=== PATIENT | male | born 1965 | race Caucasian/White ===

== ENCOUNTER 2020-01-01 04:11 | Inpatient (IN) | payer MEDICAID, OTHER ==
[~2020-01-01] VITALS: Ht 172.7 cm; Wt 66.7 kg
[2020-01-01 04:14] VITALS: BP 158/98
[2020-01-01] MEDS ORDERED: NACL 0.9% 1,000 ML IV ONE (04:15)
[2020-01-01] MEDS ORDERED: KETOROLAC 60 MG/2 ML VIAL IM ONE ×2 (04:24→04:25)
[2020-01-01] MEDS ORDERED: MORPHINE SULFATE 4 MG/ML SYR IVP ONE ×2 (04:25→05:40)
--- NOTE | 2020-01-01 04:30 | NUR ---
PT STATES HE DEVELOPED RUQ PAIN 2 DAYS AGO, HE ALSO HAS BEEN HAVING BLACK TARRY STOOLS, AND CLAIMS HE'S BEEN VOMITING AND THERE HAS BEEN BRIGHT RED BLOOD IN HIS VOMITUS. PT DENIES ANY PRIOR HX OF ANY GI BLEED. PT SCREAMING AND THRASHING IN BED IN PAIN. BED IN LOWEST POSITION AND SIDE RAIL UP X 1. ALLERGIES - PCN, TETANUS MED HX - SEIZURE D/O MEDS - KEPPRA
[2020-01-01] MEDS ORDERED: MORPHINE SULFATE 4 MG/ML SYR IM ONE (04:35)
--- NOTE | 2020-01-01 05:07 | NUR ---
LAB AT BEDSIDE. URINE COLLECTED FOR UA, SPECIMEN GIVEN TO LAB
[2020-01-01 05:25] LABS: BASOPHILS # (AUTO) 0.1 K/uL (0.00-0.22); BASOPHILS % (AUTO) 1.2 % (0.0-2.0); EOSINOPHILS # (AUTO) 0.2 K/uL (0-0.4); HEMATOCRIT 28.7 % (36-52); HEMOGLOBIN 9.5 g/dL (12.0-18.0); LYMPHOCYTES # (AUTO) 1.8 K/uL (2.0-11.5); LYMPHOCYTES % (AUTO) 19.7 % (20.5-51.1); MEAN CORPUSCULAR HEMOGLOBIN 30 pg (27-31); MEAN CORPUSCULAR HGB CONC 33 g/dL (33-37); MEAN CORPUSCULAR VOLUME 90.7 fL (80-94); MONOCYTES # (AUTO) 0.7 K/uL (0.8-1.0); MONOCYTES % (AUTO) 7.8 % (1.7-9.3); NEUTROPHILS # (AUTO) 6.5 K/uL (1.8-7.7); NEUTROPHILS % (AUTO) 69.3 % (42.2-75.2); PLATELET COUNT (AUTO) 419 K/uL (140-450); RED BLOOD CELL COUNT(AUTO) 3.16 MIL/uL (4.20-6.10); RED CELL DISTRIBUTION WIDTH 13.3 % (11.6-13.7); WHITE BLOOD COUNT (AUTO) 9.3 K/uL (4.8-10.8)
[2020-01-01 05:36] LABS: APPEARANCE,URINE CLEAR (CLEAR); BILIRUBIN,URINE NEGATIVE (NEGATIVE); BLOOD, URINE NEGATIVE (NEGATIVE); COLOR,URINE YELLOW (YELLOW); LEUKOCYTE ESTERASE ,URINE NEGATIVE (NEGATIVE); NITRITE, URINE NEGATIVE (NEGATIVE); UGLUCOSE NEGATIVE (NEGATIVE)
[2020-01-01 05:44] LABS: AMYLASE 96 U/L (25-115); ANION GAP 12.6 (8-16); ASPARTATE AMINOTRANSFERASE 20 U/L (15-37); CARBON DIOXIDE 30.4 mmol/L (21-32); CHLORIDE 101 mmol/L (98-107); GFR ARICAN-AMERICAN 100 mL/min (>90); GLUCOSE 102 mg/dL (74-106); LIPASE 201 U/L (73-393); SODIUM SERUM 140 mmol/L (136-145); TOTAL BILIRUBIN 0.1 mg/dL (0.0-1.0); UREA NITROGEN, BLOOD 17 mg/dL (7-18)
--- NOTE | 2020-01-01 05:47 | NUR ---
PT TAKEN TO CT SCAN VIA WHEELCHAIR
[2020-01-01 06:31] LABS: BARBITURATE, URINE NEGATIVE ng/ml (NEG <=200); BENZODIAZEPINE, URINE NEGATIVE ng/mL (NEG <=200); CANNABINOID, URINE POSITIVE ng/mL (NEG <=50); COCAINE, URINE NEGATIVE ng/mL (NEG <=300); OPIATE, URINE NEGATIVE ng/mL (NEG <=2000); PHENCYCLIDINE SCREEN,URINE NEGATIVE ng/mL (NEG <=25)
--- NOTE | 2020-01-01 06:34 | NUR ---
PT SLEEPING AT THIS TIME
--- NOTE | 2020-01-01 06:44 | NUR ---
PT TO BE ADMITTED TO FOR GALLSTONES, WAITING FOR BED ASSIGNMENT
[2020-01-01] MEDS ORDERED: ACETAMINOPHEN 325 MG TAB PO PRN (07:00)
[2020-01-01] MEDS ORDERED: DOCUSATE SODIUM 100 MG GELCAP PO PRN (07:00)
[2020-01-01] MEDS ORDERED: MORPHINE SULFATE 2 MG/ML SYR IVP PRN (07:00)
[2020-01-01] MEDS ORDERED: ONDANSETRON 4 MG/2 ML VIAL IM/IVP PRN (07:00)
--- NOTE | 2020-01-01 07:07 | NUR ---
ANGELESG COMPLETED AND SHOWN TO MD CASEY
[2020-01-01] MEDS ORDERED: ENALAPRILAT 2.5 MG/2 ML VIAL IVP ONE (07:10)
--- NOTE | 2020-01-01 07:16 | NUR ---
REPORT GIVEN TO ANGEL BACA
--- NOTE | 2020-01-01 07:17 | NUR ---
Received report from KEVEN Tate for continuation of care.
[2020-01-01] MEDS ORDERED: MORPHINE SULFATE 2 MG/ML SYR IVP ONE (07:20)
[2020-01-01 07:46] LABS: PROTHROMBIN TIME 9.6 secs (10.8-13.4)
[2020-01-01 07:53] LABS: CHOL/HDL RATIO 3.2 (1-4.5); MAGNESIUM 1.7 mg/dL (1.8-2.4); THYROID STIMULATING HORMONE 5.72 uIU/mL (0.34-3.74)
[2020-01-01 08:15] VITALS: BP 175/106
--- NOTE | 2020-01-01 08:15 | NUR ---
PT ARRIVED TO UNIT VIA WHEELCHAIR. RECEIVED REPORT FROM ER NURSE JYOTHI. PT IN BED, AOX4, ON ROOM AIR WITH IV SITE RIGHT IJ #20G. DISCUSSED PLAN OF CARE AND PT VERBALIZED UNDERSTANDING. PT C/O 05/27 PAIN. BP 175/106, HR 95, RR 20, SPO2 100%, TEMP 98.2F. PT STATED LAST SEIZURE WAS 5 DAYS AGO DUE TO N/V MEDICATION. WILL CONTINUE TO MONITOR.
--- NOTE | 2020-01-01 08:15 | NUR ---
Patient will be admitted to care of . Admited to [facility]. Will go to room 105A. Belongings list completed. Report to KEVEN Gamboa.
[2020-01-01] MEDS ORDERED: MORPHINE SULFATE 4 MG/ML SYR IVP PRN (08:25)
[2020-01-01] MEDS ORDERED: HYDROmorphone 1 MG/ML AMP IVP SCH (08:30)
--- NOTE | 2020-01-01 08:43 | NUR ---
SPOKE WITH DR. HAZEL REGARDING PT C/O PAIN 05/27. PT REQUESTING A HOT SHOWER. SHOWERS GRANTED AND PT DECIDED TO TAKE A HOT SHOWER AND DECLINED THE DILAUDID STATING "I DON'T WANT TO HAVE ALL THESE DRUGS IN ME, I JUST WANT TO TAKE A HOT SHOWER TO HELP WITH THE PAIN."
[2020-01-01] MEDS ORDERED: BISACODYL 10 MG SUPP RC SCH (09:00)
[2020-01-01] MEDS ORDERED: SODIUM PHOSPHATE 118 ML ENEM RC SCH (09:00)
[2020-01-01] MEDS ORDERED: MAGNESIUM OXIDE 400 MG TAB PO SCH (09:00)
[2020-01-01] MEDS: NACL 0.9% 1,000 ML IV SCH ×2 (09:07→23:37)
[2020-01-01] MEDS: levETIRAcetam 500 MG TAB PO SCH ×2 (09:08→22:20)
--- NOTE | 2020-01-01 09:09 | NUR ---
SCHEDULED MEDICATIONS GIVEN AND TOLERATED WELL. PT REFUSED SUPPOSITORY AND ENEMA STATING "I'LL BE USING THE BATHROOM IN A LITTLE WHILE." DILAUDID GIVEN FOR PAIN REQUESTED BY PATIENT. PT STATED "PAIN IS GETTING WORSE" PAIN LEVEL WAS 4/10 WHILE IN HOT SHOWER AND NOW PAIN LEVEL IS 6/10. PT TOLERATED WELL. NO S/S OF RESPIRATORY DISTRESS OR DISCOMFORT NOTED AT THIS TIME. WILL CONTINUE TO MONITOR.
--- NOTE | 2020-01-01 09:15 | NUR ---
MRSA NARES COLLECTED. PT TOLERATED WELL. NO S/S OF RESPIRATORY DISTRESS OR DISCOMFORT NOTED AT THIS TIME. WILL CONTINUE TO MONITOR.
--- NOTE | 2020-01-01 10:00 | NUR ---
PT REQUESTING HOT SHOWER AGAIN STATING PAIN WAS 10/10, MOANING. HOT SHOWER DECREASES HIS PAIN TO A TOLERABLE LEVEL.
--- NOTE | 2020-01-01 10:01 | NUR ---
PT IS AWARE OF HIDA SCAN FOR GALLBLADDER SCHEDULED FOR 1700/1800 TONIGHT AND TO BE NPO AFTER LUNCH. PT VERBALIZED UNDERSTANDING.
--- NOTE | 2020-01-01 10:43 | NUR ---
PT C/O NAUSEA ONCE OUT OF THE HOT SHOWER. EMESIS BAG GIVEN. ONCE IN PT ROOM PT VOMITED 1,000ML IN EMESIS BAG- CLEAR LIQUID. DR. HAZEL AND DR. ELLIOTT AWARE. PT REFUSED ZOFRAN STATING "I THINK THAT IS WHAT GOT ME SICK LAST TIME."
[2020-01-01] MEDS ORDERED: cloNIDine-TTS1 0.1 MG/24 HR 1 EA PATCH TD SCH (11:15)
[2020-01-01] MEDS: METOCLOPRAMIDE 10 MG/2 ML INJ VIAL IVP SCH ×2 (12:00→18:36)
[2020-01-01] MEDS ORDERED: METOCLOPRAMIDE 10 MG/2 ML INJ VIAL IVP SCH (12:00)
--- NOTE | 2020-01-01 12:00 | NUR ---
PT STATED HE WAS IN PAIN AGAIN AND WANTED ANOTHER HOT SHOWER. PT IN THE SHOWER ROOM, SITTING ON THE BENCH WITH WARM WATER RUNNING DOWN HIS BACK. PT TOLERATING WELL. NO S/S OF RESPIRATORY DISTRESS OR DISCOMFORT NOTED AT THIS TIME. WILL CONTINUE TO MONITOR.
[2020-01-01] MEDS: SENNA 8.6 MG TAB PO SCH ×2 (12:51→16:30)
[2020-01-01] MEDS: ONDANSETRON 4 MG/2 ML VIAL IVP SCH ×2 (12:51→17:00)
--- NOTE | 2020-01-01 12:51 | NUR ---
SCHEDULED MEDICATION SENOKOT GIVEN AND TOLERATED WELL. PT CONTINUES TO REFUSE REGLAN AND ZOFRAN. PT AWARE OF OB TEST. EDUCATED PT TO NOTIFY ME WHEN HE FEELS THE NEED TO HAVE A BM. BM HAT IN RESTROOM READY TO BE USED AND LABELED FOR PT. NO S/S OF RESPIRATORY DISTRESS OR DISCOMFORT NOTED AT THIS TIME. WILL CONTINUE TO MONITOR.
[2020-01-01] MEDS ORDERED: ONDANSETRON IV SCH (13:00)
[2020-01-01] MEDS ORDERED: ONDANSETRON 8 MG in NACL 0.9% 50 ML IV SCH (13:00)
[2020-01-01] MEDS ORDERED: NACL 0.9% IV SCH (13:00)
--- NOTE | 2020-01-01 13:42 | NUR ---
PT DESCRIBED THAT HIS PAIN IS MOSTLY ON THE RIGHT SIDE OF HIS BACK BY HIS LOWER RIBS TOWARDS THE MIDLINE. DR. HAZEL IS AWARE AND WILL EXAMINE PT ONCE HE FINISHES USING THE TOILET FOR URINATION. PT IS AWARE OF THE OB TEST. NO S/S OF RESPIRATORY DISTRESS OR DISCOMFORT NOTED AT THIS TIME. WILL CONTINUE TO MONITOR.
--- NOTE | 2020-01-01 13:49 | NUR ---
PATIENT HAS BEEN SCREENED AND CATEGORIZED MODERATE NUTRITION RISK. PATIENT WILL BE SEEN WITHIN 3-5 DAYS OF ADMISSION. 01/03/20 01/05/[address]
--- NOTE | 2020-01-01 14:09 | NUR ---
K PAD INITIATED FOR PT C/O BACK PAIN. PT EDUCATED ON HOW TO USE MACHINE. PT VERBALIZED UNDERSTANDING. NO S/S OF RESPIRATORY DISTRESS OR DISCOMFORT NOTED AT THIS TIME. WILL CONTINUE TO MONITOR.
--- NOTE | 2020-01-01 15:16 | NUR ---
PT SPOKE WITH DR. HAZEL AND HAS BEEN DENIED HOT SHOWERS DUE TO SEIZURE PRECAUTIONS. PT AGREED TO MORPHINE AND WAS GIVEN MEDICATION. PT TOLERATED WELL. PT CONTINUES TO MOAN, YELL AND MOVE ABOUT IN BED AND ROOM. WILL CONTINUE TO MONITOR. Addendum: 01/01/20 at 1727 by Bee Luong RN MORPHINE 3MG/0.75ML GIVEN AND 1MG/0.25ML WASTED AT NURSES STATION.
--- NOTE | 2020-01-01 15:17 | NUR ---
PT STATED THAT K PAD DOES NOT WORK FOR HIM AND TO "GET THAT THING OUT OF HERE!"
--- NOTE | 2020-01-01 16:30 | NUR ---
PT REFUSED SENAKOT STATING "I ALREADY TOOK THAT EARLIER." NO S/S OF RESPIRATORY DISTRESS OR DISCOMFORT NOTED AT THIS TIME. WILL CONTINUE TO MONITOR.
--- NOTE | 2020-01-01 18:20 | NUR ---
PT REQUESTING A HOT SHOWER. SPOKE WITH DR. NASH AND SHE ALLOWED PT TO TAKE A HOT SHOWER. PT STATED HE WILL TAKE HIS REGLAN AFTER HIS SHOWER.
--- NOTE | 2020-01-01 18:36 | NUR ---
SCHEDULED MEDICATION REGLAN GIVEN AND TOLERATED WELL. SPOKE WITH MIKE FROM NUCLEAR MED AND WILL BE PICKING UP PT TO HAVE HIDA SCAN. NO S/S OF RESPIRATORY DISTRESS OR DISCOMFORT NOTED AT THIS TIME. WILL CONTINUE TO MONITOR.
--- NOTE | 2020-01-01 19:20 | NUR ---
RECEIVED REPORT FROM AM SHIFT RN. PATIENT IS NOT IN HIS ROOM. HE IS CURRENTLY DOING HIDA SCAN PER ENDORSEMENT. PLAN OF CARE WAS DISCUSSED. WILL CONTINUE TO MONITOR.
--- NOTE | 2020-01-01 19:30 | NUR ---
PATIENT WAS BACK FROM HIDA SCAN PROCEDURE. THEY SAID THAT IT WASN'T DONE BECAUSE THE PATIENT KEEP ON MOVING AND DOESN'T STAY STILL, AND C/O PAIN. THE PATIENT IS IN THE SHOWER ROOM RIGHT NOW. I INFORMED RESIDENT DOCTOR. SAID WE'LL TRY AGAIN TOMORROW. ORDER NOTED.
[2020-01-01] MEDS: AMITRIPTYLINE 25 MG TAB PO SCH (21:26)
[2020-01-01] MEDS: HYDROcodone/APAP 5/325 MG 1 TAB TAB PO PRN (21:26)
--- NOTE | 2020-01-01 21:26 | NUR ---
DUE MED GIVEN TO PATIENT EXCEPT HANSA, TOLERATED WELL. MED EDUCATION PROVIDED. PATIENT STATES I WILL TAKE THAT IN A WHILE. C/O PAIN 5/10 AND WANTS NORCO. NORCO GIVEN ORDERED. NO SOB. WILL CONTINUE TO MONITOR.
--- NOTE | 2020-01-01 23:45 | NUR ---
PATIENT'S RIGHT INTRA JUGULAR IV SITE WAS NOTED DISLODGED. MINIMAL BLEEDING NOTED. PUT PRESSURE & DRESSED ASEPTICALLY. WILL RE-INSERT IV LINE.
[2020-01-02] VITALS: BP 145/103
--- NOTE | 2020-01-02 00:12 | NUR ---
PATIENT IS TAKING A SHOWER. WILL CONTINUE TO MONITOR.
--- NOTE | 2020-01-02 01:00 | NUR ---
TRIED TO RE-INSERT A NEW IV LINE, ATTEMPTED X1, UNSUCCESSFUL. CHARGE NURSE WILL TRY AGAIN BUT PATIENT REFUSED. MD AWARE AND SAID TO TRY AGAIN TO RE-INSERT IN THE MORNING. ORDER NOTED AND WILL TRY TO RE-INSERT AGAIN IN THE MORNING. THE REGLAN AT 12AM WASN'T GIVEN BECAUSE THERE IS NO IV SITE.
--- NOTE | 2020-01-02 05:30 | NUR ---
PATIENT IS ASLEEP. AROUSABLE TO VERBAL. NO PAIN NOTED. NO SOB. ASKED PATIENT IF OK WITH HIM TO RE-INSERT A NEW IV LINE, HE VERBALIZED "NOT RIGHT NOW, LATER." WILL CONTINUE TO MONITOR AND WILL TRY AGAIN LATER.
[2020-01-02] MEDS: HYDROcodone/APAP 5/325 MG 1 TAB TAB PO PRN ×5 (06:20→21:59)
--- NOTE | 2020-01-02 06:30 | NUR ---
RE-INSERTED A NEW IV LINE TO LEFT WRIST 24G. ATTEMPTED X1 WITH GOOD BLOOD RETURN. IV FLUID INFUSED. DUE MED GIVEN ORDERED. TOLERATED WELL. MED EDUCATION PROVIDED. CALL LIGHT WITHIN REACH. WILL CONTINUE TO MONITOR.
[2020-01-02] MEDS: METOCLOPRAMIDE 10 MG/2 ML INJ VIAL IVP SCH ×5 (06:49→21:00)
--- NOTE | 2020-01-02 07:10 | NUR ---
PATIENT IS SLEEPING. DENIES PAIN. NOT IN ANY ACUTE DISTRESS. RESPIRATION EVEN AND UNLABORED. NO SOB. ENDORSED TO AM SHIFT RN FOR CONTINUITY OF CARE. ALSO, GAVE THE MEDICINE SENOKOT TO KEVEN OLSON TO GIVE IT TO THE PATIENT LATER BECAUSE I TRIED TO GIVE IT AT 0645. PATIENT SAID "LATER." KEVEN OLSON SAID OK. Addendum: 01/02/20 at 0826 by Sylvester Rodríguez RN IN ADDITION, I MENTIONED TO KEVEN OLSON THAT PATIENT WENT MULTIPLE TIMES TO THE BATHROOM DURING MY WHOLE SHIFT AND TOOK HOT SHOWER TO RELIEVE HIS PAIN, AND IT HELPS PATIENT WELL, ASIDE FROM THE RELAXATION, POSITION CHANGES AND MEDICINE INTERVENTION.
--- NOTE | 2020-01-02 07:15 | NUR ---
RECEIVED REPORT FROM BRAINER NURSE BISHNU FOR CONTINUITY OF CARE. PATIENT IN STABLE CONDITION. RESPIRATIONS EVEN AND UNLABORED, ROOM AIR. IV INTACT AND PATENT. SAFETY MEASURES IN PLACE. BED IN LOW POSITION, BED LOCKED. CALL LIGHT AT BEDSIDE. WILL CONTINUE TO MONITOR.
--- NOTE | 2020-01-02 07:32 | NUR ---
PATIENT REFUSED AM BLOOD DRAW.
[2020-01-02 08:09] LABS: T4 (THYROXINE) 7.5 ug/dL (4.5-12.0)
[2020-01-02] MEDS ORDERED: ONDANSETRON 4 MG/2 ML VIAL IVP PRN (08:40)
[2020-01-02] MEDS: DEXT 5% / NACL 0.2% 1,000 ML IV SCH ×2 (08:45→23:03)
--- NOTE | 2020-01-02 09:04 | NUR ---
PATIENT REFUSED IV FLUID AND REQUESTED TUBING DISCONNECTED FROM IV SITE.
[2020-01-02] MEDS: amLODIPine 5 MG TAB PO SCH (09:51)
[2020-01-02] MEDS: levETIRAcetam 500 MG TAB PO SCH ×2 (09:51→21:58)
[2020-01-02] MEDS: SENNA 8.6 MG TAB PO SCH ×3 (09:51→17:12)
--- NOTE | 2020-01-02 09:52 | NUR ---
GAVE PRN NORCO MEDICATION AT THIS TIME. MAIA BERNSTEIN AWARE. DUE TO PATIENT PAIN.
--- NOTE | 2020-01-02 11:03 | NUR ---
PATIENT IN THE SHOWER AT THIS TIME. WILL CONTINUE TO MONITOR.
--- NOTE | 2020-01-02 13:41 | NUR ---
REMOVED PATIENT IV PER PATIENT REQUEST. NO INJURY TO SITE. LUMEN INTACT.
--- NOTE | 2020-01-02 13:52 | NUR ---
PATIENT IN SHOWER AT THIS TIME TO EASE PAIN. WILL CONTINUE TO MONITOR.
--- NOTE | 2020-01-02 15:12 | NUR ---
PATIENT SLEEP AT THIS TIME. RESPIRATIONS EVEN AND UNLABORED, ROOM AIR. BED IN LOW POSITION. CALL LIGHT AT BEDSIDE. WILL CONTINUE TO MONITOR.
--- NOTE | 2020-01-02 15:57 | NUR ---
DISCHARGE PLANNING: THIS IS A 54 Y/O HOMELESS MALE, WHO CAME IN DUE TO RUQ PAIN. PAST MEDICAL HISTORY INCLUDE EPILEPSY AND PTSD. INITIAL DIAGNOSIS OF BILIARY COLIC. CURRENT LABS WNL. UDS SHOWED POSITIVE FOR AMPHETAMINES AND CANNABINOIDS. ON ELAVIL. CT ABD/PELVIS SHOWED CHOLELITHIASIS. GALLBLADDER US SHOWED HEPATIC LOBE BILIARY STENT. RENAL US SHOWED NON OBSTRUCTIVE BILATERAL NEPHROLITHIASIS, POSSIBLE COMPLEX CYSTS OR PSEUDOMASS OF THE LEFT KIDNEY. GI CONSULT IN PLACE AND SEEN. DC PLAN PENDING ON PATIENT'S RESPONSE TO TREATMENT. Addendum: 01/03/20 at 1219 by Tracey Anderson CM DC PLANNING: SEEN BY DR DEGROOT ,RECOMMENDED NONSURGICAL , TREAT PATIENT WITH MUSCLE RELAXER, CONTINUE WITH IV ABX LEVAQUIN . CM TO FOLLOW.
--- NOTE | 2020-01-02 17:11 | NUR ---
GAVE PRN PAIN MEDICATION AT THIS TIME. PATIENT TOLERATED WELL. WILL CONTINUE TO MONITOR.
--- NOTE | 2020-01-02 19:15 | NUR ---
GAVE REPORT TO COOLER CONVEYOR LOADER NURSE MILTON FOR CONTINUITY OF CARE. PATIENT IN STABLE CONDITION.
--- NOTE | 2020-01-02 19:16 | NUR ---
RECEIVED REPORT FROM AM NURSE. PATIENT LYING DOWN IN BED SLEEPING, AROUSABLE BY VOICE. NO DISTRESS NOTED. DENIES ANY PAIN AT THIS TIME. RESPIRATIONS EVEN, UNLABORED, ON ROOM AIR. AAOX4, CALM, COOPERATIVE, SKIN COLOR APPROPRIATE TO ETHNICITY, WARM TO TOUCH. SKIN INTACT. NO IV SITE PATIENT PULLED OUT AND REFUSES ANOTHER IV STICK PER AM NURSE REPORT, MD ALREADY AWARE. SAFETY MEASURES IN PLACE, CALL LIGHT WITHIN REACH. WILL CONTINUE TO MONITOR.
[2020-01-02 20:00] VITALS: BP 122/79
[2020-01-02] MEDS: AMITRIPTYLINE 25 MG TAB PO SCH (21:58)
--- NOTE | 2020-01-02 22:15 | NUR ---
TALKED WITH PATIENT REGARDING POSSIBLE LAP REBECA BY DR. DEGROOT TOMORROW. PER PATIENT, HE WANTS TO TALK TO THE DR. DEGROOT FIRST BEFORE SIGNING ANY CONSENTS. WILL CONTINUE TO MONITOR.
[2020-01-03] VITALS: BP 115/75
--- NOTE | 2020-01-03 03:00 | NUR ---
PATIENT LYING DOWN IN BED SLEEPING, AROUSABLE BY VOICE. NO DISTRESS NOTED. CONDITION UNCHANGED. WILL CONTINUE TO MONITOR.
[2020-01-03] MEDS: METOCLOPRAMIDE 10 MG/2 ML INJ VIAL IVP SCH ×4 (05:00→21:00)
--- NOTE | 2020-01-03 05:31 | NUR ---
PATIENT LYING DOWN IN BED SLEEPING, AROUSABLE BY VOICE. CONDITION UNCHANGED. WILL CONTINUE TO MONITOR.
[2020-01-03] MEDS: HYDROcodone/APAP 5/325 MG 1 TAB TAB PO PRN ×2 (06:14→20:51)
[2020-01-03 06:43] LABS: BASOPHILS # (AUTO) 0.1 K/uL (0.00-0.22); BASOPHILS % (AUTO) 0.5 % (0.0-2.0); EOSINOPHILS # (AUTO) 0.2 K/uL (0-0.4); EOSINOPHILS % (AUTO) 1.5 % (0.0-4.0); HEMOGLOBIN 11.5 g/dL (12.0-18.0); LYMPHOCYTES # (AUTO) 1.8 K/uL (2.0-11.5); LYMPHOCYTES % (AUTO) 14.4 % (20.5-51.1); MEAN CORPUSCULAR HEMOGLOBIN 31 pg (27-31); MEAN CORPUSCULAR HGB CONC 34 g/dL (33-37); MEAN CORPUSCULAR VOLUME 89.9 fL (80-94); MONOCYTES # (AUTO) 1.2 K/uL (0.8-1.0); MONOCYTES % (AUTO) 9.6 % (1.7-9.3); NEUTROPHILS # (AUTO) 9.1 K/uL (1.8-7.7); PLATELET COUNT (AUTO) 522 K/uL (140-450); RED BLOOD CELL COUNT(AUTO) 3.79 MIL/uL (4.20-6.10); RED CELL DISTRIBUTION WIDTH 13.3 % (11.6-13.7); WHITE BLOOD COUNT (AUTO) 12.3 K/uL (4.8-10.8)
[2020-01-03 06:59] LABS: ANION GAP 13.8 (8-16); CARBON DIOXIDE 27.4 mmol/L (21-32); POTASSIUM 4.2 mmol/L (3.5-5.1)
[2020-01-03 07:01] LABS: MAGNESIUM 1.9 mg/dL (1.8-2.4); PHOSPHORUS 3.6 mg/dL (2.5-4.9)
--- NOTE | 2020-01-03 07:13 | NUR ---
GAVE REPORT TO AM SHIFT NURSE FOR CONTINUITY OF CARE. PATIENT IN STABLE CONDITION.
--- NOTE | 2020-01-03 07:14 | NUR ---
RECEIVED REPORT FROM MUTUEL CLERK NURSE, FOR CONTINUITY OF CARE. AA&OX4. MEDICAL DIRECTOR IS AT BEDSIDE. RESPIRATIONS EVEN AND UNLABORED, BREATHING TO RA. SKIN INTACT, SKIN COLOR APPROPRIATE FOR ETHNICITY. PT REFUSED IV INSERTION. NPO. REVIEWED PLAN OF CARE WITH PT. SAFETY MEASURES IN PLACE; CALL LIGHT WITHIN REACH, BED IN LOW POSITION. WILL CONTINUE TO MONITOR.
[2020-01-03 08:00] VITALS: BP 107/65
[2020-01-03] MEDS: SENNA 8.6 MG TAB PO SCH ×3 (08:03→18:56)
--- NOTE | 2020-01-03 08:16 | NUR ---
PT SHOWERED AND IS NOW BACK IN BED. RESIDENT IS AT BEDSIDE SPEAKING WITH PT. SAFETY MEASURES IN PLACE. WILL CONTINUE TO MONITOR.
[2020-01-03] MEDS: levETIRAcetam 500 MG TAB PO SCH ×2 (10:47→21:00)
[2020-01-03] MEDS: amLODIPine 5 MG TAB PO SCH (10:48)
[2020-01-03] MEDS ORDERED: LEVOFLOXACIN 750 MG/D5W PREMIX 150 ML IV SCH (11:00)
--- NOTE | 2020-01-03 11:05 | NUR ---
PT'S SCHEDULED MEDS ALSO GIVEN; MEDICATION EDUCATION PROVIDED. PT TOLERATED PO MEDS WELL. IV MEDICATION WAS NOT ADMINISTERED; PT REFUSED IV INSERTION. PT COMPLAINS OF PAIN; PER RESIDENT NO OPIATE MEDICATION SHOULD BE GIVEN, PENDING SURGERY LATER TODAY, WILL ORDER TORADOL. NO ACUTE DISTRESS NOTED. WILL CONTINUE TO MONITOR.
--- NOTE | 2020-01-03 11:42 | NUR ---
HEAD OF SALES PROMOTION NOTE: Basic Screen: Yes High Risk DC Screen [facility]: N/A Pre-Admission Living Arrangements: Other Prior ADL Independent Current Home Health Name/Tel: N/A Current DME/02 Name/Tel: WHEELCHAIR Current Hospice Name/Tel: N/A Current Dialysis Name/Tel: N/A Healthcare Decision Maker: Patient Advance Directive No Physician Orders for Life Sustaining Treatment Form No Patient/Family Have Educational Needs No Information Taught: Community Resources Person Taught: Patient Teaching Tools: Community Resources Factors Affecting Learning: None Evaluation: Verbalizes Understanding Discipline: Case Mgt/Social Svcs Tentative Discharge Plan/Destination: No Needs Identified Will require assistance post discharge: No Referred to Appian Developer: No Tentative Discharge Plan Summary: PATIENT IS A 54-YEAR-OLD MALE ADMITTED FOR BILIARY COLIC. PATIENT HAS PMHX OF EPILEPSY. PATIENT STATED THAT HE HAS BEEN COUCHING SURFING PRIOR TO HIS HOSPITALIZATION. SW MET WITH PATIENT AT BEDSIDE TO VERIFY DEMOGRAPHICS. PATIENT STATED THAT HE STAYS WITH DIFFERENT FRIENDS AT DIFFERENT TIMES. SW PROVIDED HOMELESS RESOURCES. PATIENT STATED THAT HE HAS A HISTORY OF BIPOLAR DISORDER. PATIENT REFUSED RESOURCES. PATIENT DENIED SUBSTANCE ABUSE HISTORY. TENTATIVE DISCHARGE PLAN IS FOR PATIENT TO RETURN TO FRIEND'S HOUSE. PATIENT WAS UNABLE TO PROVIDE FRIEND'S NAME. SW WILL REMAIN AVAILABLE IF FURTHER ISSUES ARISE. Signature: MONIQUE MAZARIEGOS Date: January 03, 2020 Time: 11:40
[2020-01-03] MEDS ORDERED: ONDANSETRON 4 MG/2 ML VIAL ONE (12:16)
[2020-01-03] MEDS ORDERED: fentaNYL 0.05 MG/ML VIAL ONE (12:16)
[2020-01-03] MEDS ORDERED: MIDAZOLAM 2 MG/2 ML VIAL ONE (12:16)
[2020-01-03] MEDS ORDERED: DEXAMETHASONE 4 MG/ML VIAL ONE (12:16)
[2020-01-03] MEDS ORDERED: DESFLURANE 240 ML BTL INH ONE (12:16)
[2020-01-03] MEDS ORDERED: CLINDAMYCIN 600 MG/4 ML VIAL ONE (12:21)
[2020-01-03] MEDS ORDERED: CLINDAMYCIN 900 MG/6 ML VIAL IV ONE (12:21)
[2020-01-03] MEDS ORDERED: LEVOFLOXACIN 500 MG/D5W PREMIX 100 ML IV ONE (12:33)
--- NOTE | 2020-01-03 12:35 | NUR ---
PT IS OFF UNIT FOR SURGERY.
[2020-01-03] MEDS ORDERED: BUPIVACAINE-MPF/EPI 0.25% 30 ML VIAL INJ ONE (12:45)
[2020-01-03] MEDS ORDERED: LACTATED RINGERS 1,000 ML IV SCH (13:08)
[2020-01-03] MEDS ORDERED: ONDANSETRON 4 MG/2 ML VIAL IVP PRN (13:10)
[2020-01-03] MEDS ORDERED: HYDROmorphone 1 MG/ML AMP IVP PRN (13:10)
[2020-01-03] MEDS ORDERED: MEPERIDINE 25 MG/ML SYR IVP PRN (13:10)
[2020-01-03] MEDS ORDERED: ALBUMIN HUMAN 5 % 250 ML IV ONE (13:56)
[2020-01-03] MEDS ORDERED: ePHEDrine 50 MG/ML VIAL ONE (13:57)
[2020-01-03] MEDS ORDERED: ePHEDrine 50 MG/ML VIAL IV PRN (14:00)
[2020-01-03] MEDS: ALBUMIN HUMAN 5 % 250 ML IV ONE ×2 (14:16→14:30)
--- NOTE | 2020-01-03 14:45 | NUR ---
PT IS BACK ON UNIT, S/P LAP CHOLECYSTECTOMY. RECEIVED REPORT FROM OR NURSE. PT HAS 4 ABDOMINAL INCISIONS, COVERED WITH DERMABOND. 5 MG EPHEDRINE GIVEN IN THE OR FOR LOW B/P. VITAL SIGNS ARE STABLE. BP: 107/65; PULSE:84. IV PLACED, LEFT HAND 20 GAUGE. NO ACUTE DISTRESS NOTED. WILL CONTINUE TO MONITOR.
--- NOTE | 2020-01-03 15:35 | NUR ---
CALL LIGHT PLACED NEXT TO PT ON BED, WITH PT INSTRUCTED TO PUSH THE BUTTON TO CALL FOR HELP IF NEEDED. PT TOLD IT TELECOM TECHNICIAN THAT HE NEEDED TO URINATE, AND A URINAL WAS PROVIDED TO PT BY IT TELECOM TECHNICIAN. PT FOUND ON THE FLOOR, WITH IV POLE NEXT TO HIM. PT STATED THAT HE DIDN'T FEEL COMFORTABLE USING THE URINAL IN BED, SO HE ATTEMPTED TO AMBULATE TO THE RESTROOM WITHOUT ASSISTANCE, AND FORGOT THAT HIS LEGS WERE STILL CONNECTED TO THE SEQUENTIAL COMPRESSION DEVICES, AND THEN LOWERED HIMSELF ONTO THE FLOOR. VITALS TAKEN, VITAL SIGNS STABLE. BP: 118/70, PULSE: 81. RESIDENT NOTIFIED; HEAD CT ORDERED TO R/O INJURY. PT REFUSES SUPPLEMENTAL O2. SPO2: 100% ON ROOM AIR. PT ALSO REFUSES TO CONTINUE TO WEAR THE SCDS. RADIOLOGY IS TO PERFORM HEAD CT. WILL CONTINUE TO MONITOR.
[2020-01-03 16:00] VITALS: BP 111/70
--- NOTE | 2020-01-03 16:32 | NUR ---
RADIOLOGY TECHNICIANS ON UNIT TO TAKE PT FOR CT SCAN. PT FOUND SLEEPING IN BED. WHEN PT WAS INFORMED THAT HE WOULD BE TAKEN FOR THE ORDERED CT SCAN, HE REFUSED; STATED: "I'M OKAY NOW", AND STATED THAT HE DID NOT NEED OR WANT THE CT. DR. HANKS INFORMED OF THE PT'S REFUSAL OF CT SCAN.
[2020-01-03] MEDS: KETOROLAC 15 MG/ML VIAL IVP PRN (18:52)
[2020-01-03] MEDS: CYCLOBENZAPRINE 10 MG TAB PO SCH ×2 (18:53→18:57)
--- NOTE | 2020-01-03 19:06 | NUR ---
PT COMPLAINS OF PAIN, TORADOL IVP ADMINISTERED. PO MEDICATIONS ALSO ADMINISTERED, MEDICATION EDUCATION PROVIDED. IV LEVAQUIN HUNG, AND RUNNING PER ORDERS. PREVIOUS DOSE OF LEVAQUIN WAS NOT ADMINISTERED, DUE TO PT REFUSING IV INSERTION. WARM BLANKET PROVIDED. PT IS IN STABLE CONDITION. SAFETY MEASURES IN PLACE.
--- NOTE | 2020-01-03 19:29 | NUR ---
GAVE BEDSIDE REPORT TO HYDROPULPER OPERATOR NURSE FOR CONTINUITY OF CARE. PT IS IN STABLE CONDITION.
--- NOTE | 2020-01-03 19:30 | NUR ---
RECEIVED REPORT FROM DAY SHIFT NURSE. PATIENT AWAKE, ALERT, ORIENTED X 4. PATIENT ON ROOM AIR. RESPIRATIONS EVEN AND UNLABORED. PATIENT WITH ABDOMINAL INCISIONS, DRESSING IN PLACE. WITH IV SITE PATENT AND INTACT WITH IVF. AMBULATES WITH ASSISTANCE. NO DISTRESS NOTED AT THIS TIME. SAFETY MEASURES IN PLACE. CALL LIGHT WITHIN REACH. REVIEWED PLAN OF CARE TO PATIENT. VERBALIZED UNDERSTANDING. WILL CONTINUE TO MONITOR PATIENT.
--- NOTE | 2020-01-03 20:51 | NUR ---
PATIENT COMPLAINED OF ABDOMINAL PAIN 6/10 PAINSCALE. MEDICATED PATIENT WITH NORCO PER ORDER. WILL REASSESS AND CONTINUE TO MONITOR PATIENT.
[2020-01-03] MEDS: AMITRIPTYLINE 25 MG TAB PO SCH (21:00)
--- NOTE | 2020-01-03 21:09 | NUR ---
WASTED REGLAN 5 MG MEDICATION. PATIENT IV SITE INFILTRATED. REMOVED. ASKED PATIENT TO INSERT NEW IV SITE BUT REFUSED. PATIENT REFUSED MED AT THIS TIME.
--- NOTE | 2020-01-03 23:10 | NUR ---
PATIENT SNEAKED TO THE BATHROOM TO SHOWER. PATIENT S/P LAP REBECA. ASSESSED INCISION INTACT, NO DRAINAGE NOTED. EDUCATED PATIENT TO NOT SHOWER WITHOUT DOCTOR'S ORDER. PATIENT UNDERSTANDS. WILL CONTINUE TO MONITOR.
[2020-01-04] VITALS: BP 125/71
--- NOTE | 2020-01-04 01:23 | NUR ---
CHECKED PATIENT. PATIENT IS SLEEPING COMFORTABLY. ON ROOM AIR. RESPIRATIONS EVEN AND UNLABORED. WILL CONTINUE TO MONITOR PATIENT.
[2020-01-04] MEDS: HYDROcodone/APAP 5/325 MG 1 TAB TAB PO PRN ×2 (02:43→09:54)
--- NOTE | 2020-01-04 02:43 | NUR ---
PATIENT COMPLAINED OF ABDOMINAL PAIN OF 6/10. MEDICATED PATIENT WITH NORCO PER ORDER. WILL REASSESS AND CONTINUE TO MONITOR PATIENT.
[2020-01-04] MEDS: KETOROLAC 15 MG/ML VIAL IVP PRN (04:44)
[2020-01-04] MEDS: METOCLOPRAMIDE 10 MG/2 ML INJ VIAL IVP SCH (04:44)
--- NOTE | 2020-01-04 04:44 | NUR ---
PATIENT COMPLAINED OF SEVERE PAIN ON HIS ABDOMINAL AREA /. INSERTED IV ON LEFT FOREARM GAUGE 22. MEDICATED PATIENT WITH TORADOL PER MD ORDER. OTHER IV SCHEDULED MEDICATION GIVEN. SAFETY MEASURES IN PLACE. WILL REASSESS AND CONTINUE TO MONITOR PATIENT.
[2020-01-04] MEDS: SENNA 8.6 MG TAB PO SCH (06:34)
--- NOTE | 2020-01-04 06:34 | NUR ---
SCHEDULED PO MEDICATION GIVEN. PATIENT TOLERATED WELL. WILL CONTINUE TO MONITOR PATIENT.
[2020-01-04 06:57] LABS: BASOPHILS % (AUTO) 0.3 % (0.0-2.0); EOSINOPHILS % (AUTO) 0.1 % (0.0-4.0); HEMATOCRIT 26.9 % (36-52); HEMOGLOBIN 9.4 g/dL (12.0-18.0); LYMPHOCYTES # (AUTO) 1.6 K/uL (2.0-11.5); MEAN CORPUSCULAR HEMOGLOBIN 31 pg (27-31); MEAN CORPUSCULAR HGB CONC 35 g/dL (33-37); MEAN CORPUSCULAR VOLUME 89.2 fL (80-94); MONOCYTES # (AUTO) 1.1 K/uL (0.8-1.0); MONOCYTES % (AUTO) 8.5 % (1.7-9.3); NEUTROPHILS # (AUTO) 10.5 K/uL (1.8-7.7); NEUTROPHILS % (AUTO) 79.1 % (42.2-75.2); PLATELET COUNT (AUTO) 518 K/uL (140-450); RED BLOOD CELL COUNT(AUTO) 3.01 MIL/uL (4.20-6.10); RED CELL DISTRIBUTION WIDTH 12.8 % (11.6-13.7); WHITE BLOOD COUNT (AUTO) 13.2 K/uL (4.8-10.8)
[2020-01-04 07:06] LABS: MAGNESIUM 1.8 mg/dL (1.8-2.4); PHOSPHORUS 3.4 mg/dL (2.5-4.9)
--- NOTE | 2020-01-04 07:18 | NUR ---
PATIENT IN STABLE CONDITION. ENDORSED PATIENT TO DAY SHIFT NURSE FOR CONTINUITY OF CARE.
--- NOTE | 2020-01-04 07:20 | NUR ---
RECEIVED REPORT FROM WINDOWS APPLICATION PACKAGER RNROSLYN. PATIENT AWAKE, ALERT, ORIENTED X 4. PATIENT ON ROOM AIR. RESPIRATIONS EVEN AND UNLABORED. PATIENT WITH ABDOMINAL INCISIONS, DRESSING IN PLACE. WITH IV SITE PATENT AND INTACT, LEFT FOREARM 22G SL. AMBULATES WITH ASSISTANCE. NO DISTRESS NOTED AT THIS TIME. SAFETY MEASURES IN PLACE. CALL LIGHT WITHIN REACH. REVIEWED PLAN OF CARE TO PATIENT. VERBALIZED UNDERSTANDING. WILL CONTINUE TO MONITOR PATIENT.
[2020-01-04 07:22] LABS: ANION GAP 10.3 (8-16); CARBON DIOXIDE 27.9 mmol/L (21-32); CREATININE 1.2 mg/dL (0.6-1.3); POTASSIUM 4.2 mmol/L (3.5-5.1)
--- NOTE | 2020-01-04 09:00 | NUR ---
ATTEMPTED TO GIVE MORNING MEDICATIONS, PT. IS ASLEEP AND REQUESTS TO TAKE THEM AFTER AN HOUR. WILL CONTINUE TO MONITOR.
[2020-01-04] MEDS: CYCLOBENZAPRINE 10 MG TAB PO SCH (09:49)
[2020-01-04] MEDS: amLODIPine 5 MG TAB PO SCH (09:50)
--- NOTE | 2020-01-04 09:50 | NUR ---
MORNING MEDICATIONS GIVEN. NO SIGNS OF DISTRESS NOTED. WILL CONTINUE TO MONITOR.
[2020-01-04] MEDS: levETIRAcetam 500 MG TAB PO SCH (09:51)
--- NOTE | 2020-01-04 10:30 | NUR ---
DR. COLLINS BY THE BEDSIDE PER REQUEST OF PT. PT. VERBALIZES WANTING TO LEAVE BY AMA. EXPLAINED RISK AND BENEFITS OF LEAVING AMA. PT. IS ASKED ON BASIS OF LEAVING, PT. REPLIES " I JUST WANT TO". WILL COMPLY. WILL CONTINUE TO MONITOR.
[2020-01-04] MEDS ORDERED: NACL 0.45% 1,000 ML IV SCH (10:55)
--- NOTE | 2020-01-04 11:15 | NUR ---
PT. HAS SIGNED AMA FORM, IV SITE REMOVED, ARMBANDS REMOVED. NO SIGNS OF DISTRESS NOTED. WILL CONTINUE TO MONITOR.
--- NOTE | 2020-01-04 11:30 | NUR ---
PT. IS OFF THE UNIT. NO SIGNS OF DISTRESS NOTED. SELF-AMBULATED WITHOUT ASSIST.
[2020-01-05] MEDS ORDERED: KEP500 PO (03:53)
== END 2020-01-04 11:30 | disposition left against medical advice (07) | DRG 263 ==
LOC: MED 04:11 → EDUNIT# 07:00 → MTU 07:00
PROVIDERS: ADMIT General Practice; ATTEND General Practice
PROC: 0FT44ZZ Resection of Gallbladder, Percutaneous Endoscopic Approach (ICD-10-PCS; principal; 2020-01-03 12:30)
DX: K80.70 Calculus of gallbladder and bile duct without cholecystitis without obstruction (principal); E44.0 Moderate protein-calorie malnutrition; E83.42 Hypomagnesemia; E87.1 Hypo-osmolality and hyponatremia; D63.8 Anemia in other chronic diseases classified elsewhere; Z68.22 Body mass index [BMI] 22.0-22.9, adult; Z88.0 Allergy status to penicillin; Z88.8 Allergy status to other drugs, medicaments and biological substances; Z88.7 Allergy status to serum and vaccine; D72.829 Elevated white blood cell count, unspecified; F12.90 Cannabis use, unspecified, uncomplicated; F43.10 Post-traumatic stress disorder, unspecified; G40.909 Epilepsy, unspecified, not intractable, without status epilepticus; E02 Subclinical iodine-deficiency hypothyroidism; N20.0 Calculus of kidney; F15.90 Other stimulant use, unspecified, uncomplicated; K44.9 Diaphragmatic hernia without obstruction or gangrene; K59.00 Constipation, unspecified; Z59.0 Homelessness; Z79.899 Other long term (current) drug therapy
CPT/HCPCS: 36415; 71045; 76700; 76770; 78445; 80048; 80053; 80305; 81003; 82150; 82374; 83036; 83690; 83735; 83880; 84100; 84436; 84443; 85025; 85610; 85730; 86886; 86900; 86901; 87081; 88304; 93005; 96361; 96372; 96374; 96376; 99285; A9510; G0482; J1100; J1170; J1885; J1956; J2250; J2270; J2405; J2765; J3010; J3490; J7030; P9041; Q0092

== ENCOUNTER 2020-01-05 00:50 | Inpatient (IN) | payer MEDICAID ==
[~2020-01-05] VITALS: Ht 175.3 cm; Wt 61.7 kg
[2020-01-05 00:54] VITALS: BP 155/83
[2020-01-05] MEDS ORDERED: NACL 0.9% 1,000 ML IV ONE (01:00)
[2020-01-05] MEDS ORDERED: HYDROmorphone PFS 2 MG/ML SYR IVP ONE (01:00)
--- NOTE | 2020-01-05 01:02 | NUR ---
54/M presents to ED, s/p cholecystectomy yesterday here in [facility], c/o vomiting x5 bright red blood, diffuse abd pain radiating to R mid back. Pt temp 102 on scene per EMS, but afebrile at this time. Pt reports constipation, LBM 6 days ago. Pt awake and alert, skin normal color warm and dry, rr even tachypnic but unlabored. Lung sounds clear BL. BS hypoactive x4, abd soft flat tender with guarding. 4 laparascopic incision sites covered in surgical glue, with mild surrounding redness. Hx seizure, cholecystectomy Rx amanda deshpande
[2020-01-05] MEDS ORDERED: PANTOPRAZOLE 40 MG INJ VIAL IVP ONE (01:05)
--- NOTE | 2020-01-05 01:10 | NUR ---
Transfer plan of care to [facility]
[2020-01-05 01:24] LABS: BASOPHILS # (AUTO) 0.1 K/uL (0.00-0.22); BASOPHILS % (AUTO) 0.7 % (0.0-2.0); EOSINOPHILS # (AUTO) 0.1 K/uL (0-0.4); EOSINOPHILS % (AUTO) 0.5 % (0.0-4.0); HEMATOCRIT 26.2 % (36-52); LYMPHOCYTES # (AUTO) 1.4 K/uL (2.0-11.5); LYMPHOCYTES % (AUTO) 13.4 % (20.5-51.1); MEAN CORPUSCULAR HEMOGLOBIN 30 pg (27-31); MEAN CORPUSCULAR HGB CONC 34 g/dL (33-37); MEAN CORPUSCULAR VOLUME 88.8 fL (80-94); MONOCYTES # (AUTO) 0.9 K/uL (0.8-1.0); MONOCYTES % (AUTO) 8.9 % (1.7-9.3); NEUTROPHILS # (AUTO) 8.1 K/uL (1.8-7.7); NEUTROPHILS % (AUTO) 76.5 % (42.2-75.2); PLATELET COUNT (AUTO) 552 K/uL (140-450); RED BLOOD CELL COUNT(AUTO) 2.95 MIL/uL (4.20-6.10); RED CELL DISTRIBUTION WIDTH 13.1 % (11.6-13.7); WHITE BLOOD COUNT (AUTO) 10.6 K/uL (4.8-10.8)
--- NOTE | 2020-01-05 01:26 | NUR ---
INFORMED PT THAT A URINE SAMPLE IS NEEDED AND PT STATES "I JUST WENT PEE A LITTLE WHILE AGO AND AM UNABLE TO PEE RIGHT NOW." INFORMED PT THAT I WILL CHECK ON HIM IN A FEW MINS AFTER THE BOLUS HAS BEEN RUNNING TO SEE IF PT IS ABLE TO THEN URINATE.
[2020-01-05 01:39] LABS: ANION GAP 7.6 (8-16); CARBON DIOXIDE 32.2 mmol/L (21-32); POTASSIUM 3.8 mmol/L (3.5-5.1); TOTAL BILIRUBIN 0.2 mg/dL (0.0-1.0)
--- NOTE | 2020-01-05 01:42 | NUR ---
KIM BLOOD CULTURES FROM LINE AND HANDED TO LAB AT BEDSIDE
--- NOTE | 2020-01-05 01:43 | NUR ---
PT STATING STILL FEELS NAUSEOUS AND INFORMED AND HE STATED AFTER PT RETURNS FROM CT THEN POSSIBLE NEW ORDER FOR ZOFRAN. INFORMED PT OF THIS.
[2020-01-05] MEDS ORDERED: ONDANSETRON 4 MG/2 ML VIAL IVP ONE (01:45)
--- NOTE | 2020-01-05 01:45 | NUR ---
PT CRYING OUT FOR NURSE TO RE ADJUST HEATING PACK AND ONCE THIS WAS DONE PT WAS SATISFIED.
--- NOTE | 2020-01-05 01:46 | NUR ---
PT C/O REALLY BAD BACK PAIN AND REQUESTING HEATING PAD, SO CALLED OUTPATIENT THERAPIST AND SHE BROUGHT ME HEATING PAD DEVICE, WHICH IS PROVIDING SOME PAIN RELIEF FOR PT.
--- NOTE | 2020-01-05 02:15 | NUR ---
PT SIGNED CT CONSENT FORM
--- NOTE | 2020-01-05 02:18 | NUR ---
PT TAKEN TO CT VIA PEDRO
--- NOTE | 2020-01-05 02:38 | NUR ---
PT RETURNED FROM CT VIA GURNEY AND CONECTED TO BEDSIDE MONITOR AND HEATING PAD REPLACED UNDER PT'S BACK
--- NOTE | 2020-01-05 02:44 | NUR ---
PT IS TRYING TO PROVIDE URINE SAMPLE BUT NO SUCCESS YET
--- NOTE | 2020-01-05 03:09 | NUR ---
WALKED URINE SAMPLE TO LAB
[2020-01-05 03:13] LABS: APPEARANCE,URINE CLEAR (CLEAR); BILIRUBIN,URINE NEGATIVE (NEGATIVE); BLOOD, URINE NEGATIVE (NEGATIVE); COLOR,URINE YELLOW (YELLOW); LEUKOCYTE ESTERASE ,URINE NEGATIVE (NEGATIVE); NITRITE, URINE NEGATIVE (NEGATIVE); UGLUCOSE NEGATIVE (NEGATIVE)
[2020-01-05] MEDS ORDERED: MORPHINE SULFATE 2 MG/ML SYR IVP PRN (03:20)
[2020-01-05] MEDS ORDERED: ONDANSETRON 4 MG/2 ML VIAL IVP PRN (03:20)
[2020-01-05] MEDS ORDERED: ACETAMINOPHEN 325 MG TAB PO PRN (03:20)
--- NOTE | 2020-01-05 03:30 | NUR ---
PT RESTING IN POSITION OF COMFORT WITH HEATING PAD PLACED BEHIND BACK. BED LOW AND LOCKED WITH 2 SIDERAILS UP, VSS, WILL CONTINUE TO MONITOR
--- NOTE | 2020-01-05 03:35 | NUR ---
AT BEDSIDE TALKING WITH PT
[2020-01-05] MEDS ORDERED: KEP500 PO (03:53)
[2020-01-05 03:54] LABS: PROTHROMBIN TIME 10.2 secs (10.8-13.4)
[2020-01-05 04:00] LABS: BARBITURATE, URINE NEGATIVE ng/ml (NEG <=200); BENZODIAZEPINE, URINE NEGATIVE ng/mL (NEG <=200); CANNABINOID, URINE POSITIVE ng/mL (NEG <=50); COCAINE, URINE NEGATIVE ng/mL (NEG <=300); PHENCYCLIDINE SCREEN,URINE NEGATIVE ng/mL (NEG <=25)
[2020-01-05 04:00] LABS: MAGNESIUM 1.7 mg/dL (1.8-2.4); PHOSPHORUS 3.9 mg/dL (2.5-4.9); THYROID STIMULATING HORMONE 4.42 uIU/mL (0.34-3.74)
[2020-01-05 04:01] LABS: OPIATE, URINE POSITIVE ng/mL (NEG <=2000)
--- NOTE | 2020-01-05 04:15 | NUR ---
ADMITTED 54 Y/O MALE VIA GURNEY FROM E.. PATIENT IS LYING IN BED. AOX4. RESPIRATION EVEN AND UNLABORED. NO SOB. IV SITE AT LFA 20 G. INTACT. INITIAL ASSESSMENT DONE. V/S 98.6, 18, 95, 118/70, 97% RA. WITH HEATING PAD ON THE BED. PLAN OF CARE WAS DISCUSSED. CALL LIGHT WITHIN REACH. WILL CONTINUE TO MONITOR.
--- NOTE | 2020-01-05 04:15 | NUR ---
Patient will be admitted to care of . Admited to [facility]. Will go to room 105B. Belongings list completed. Report GIVEN TO KEVEN GOETZ. ENDORSED THE RETURN OF THE HEATING PAD MACHINE TO [facility] TO PUT AWAY TO BRODY MCCARTY RN AND BISHNU, PRIMARY RN, UPON PT DISCHARGE.
[2020-01-05] MEDS ORDERED: MAGNESIUM OXIDE 400 MG TAB PO SCH (04:40)
[2020-01-05] MEDS: DEXT 5% /NACL 0.9% 1,000 ML IV SCH ×2 (05:14→15:45)
[2020-01-05] MEDS: HYDROcodone/APAP 7.5/325 MG 1 TAB PO PRN ×2 (05:14→10:07)
--- NOTE | 2020-01-05 05:14 | NUR ---
PATIENT C/O ABDOMINAL PAIN 01/25. REPOSITIONED. PAIN MED GIVEN ORDERED. MED ED PROVIDED. KEPT COMFORTABLE.
--- NOTE | 2020-01-05 06:14 | NUR ---
DENIES PAIN. CALL LIGHT WITHIN REACH. WILL CONTINUE TO MONITOR.
--- NOTE | 2020-01-05 07:25 | NUR ---
PATIENT IS STABLE. NO N/V. ENDORSED TO AM SHIFT RN FOR CONTINUITY OF CARE.
--- NOTE | 2020-01-05 07:30 | NUR ---
RECEIVED REPORT FROM ANESTHESIA ASSOCIATE RN, BARBARA, FOR CONTINUITY OF CARE. PATIENT ASLEEP AND IN BED. AAOX 4. ON ROOM AIR. RESPIRATIONS EVEN AND UNLABORED. SKIN NON-INTACT WITH 5 SURGICAL INCISION IN THE ABDOMEN. IV SITE PATENT AND INTACT ON L FOREARM 20G D5NS 75ML/HR WITH IVF. NO PAIN/DISTRESS NOTED. REVIEWED PLAN OF CARE TO PATIENT. VERBALIZED UNDERSTANDING. SAFETY MEASURES IN PLACE. CALL LIGHT WITHIN REACH. WILL CONTINUE TO MONITOR PATIENT.
[2020-01-05 08:00] VITALS: BP 108/64
--- NOTE | 2020-01-05 08:49 | NUR ---
PATIENT HAS BEEN SCREENED AND CATEGORIZED MODERATE NUTRITION RISK. PATIENT WILL BE SEEN WITHIN 3-5 DAYS OF ADMISSION. 01/07/20 01/09/[address]
[2020-01-05] MEDS ORDERED: FAMOTIDINE 20 MG TAB PO SCH (09:00)
[2020-01-05] MEDS: levETIRAcetam 500 MG TAB PO SCH ×2 (10:09→20:13)
[2020-01-05] MEDS: DOCUSATE SODIUM 100 MG GELCAP PO SCH ×2 (10:10→20:13)
--- NOTE | 2020-01-05 11:20 | NUR ---
DR. MOELLER BY THE BEDSIDE. EGD PROCEDURE TO BE DONE TODAY FOR HEMATEMESIS. PT. HAS SIGNED CONSENT. RISK AND BENEFITS EXPLAINED TO PT. PT. VERBALIZES UNDERSTANDING. WILL CONTINUE TO MONITOR.
[2020-01-05] MEDS ORDERED: diphenhydrAMINE 50 MG/ML VIAL ONE (11:24)
[2020-01-05] MEDS ORDERED: fentaNYL 0.05 MG/ML VIAL ONE (11:25)
[2020-01-05] MEDS ORDERED: MIDAZOLAM 2 MG/2 ML VIAL ONE (11:25)
--- NOTE | 2020-01-05 11:40 | NUR ---
PT. IS OFF THE UNIT FOR EGD DUE TO HEMATEMESIS. PT. IS AWARE OF PROCEDURE. PRE-OPERATION CHECKLIST DONE. NO SIGNS OF DISTRESS NOTED FROM PT. WILL CONTINUE TO MONITOR.
[2020-01-05] MEDS: MIDAZOLAM 2 MG/2 ML VIAL IVP ONE ×2 (11:46→12:50)
[2020-01-05] MEDS: fentaNYL 0.05 MG/ML VIAL IVP ONE ×2 (11:47→12:49)
[2020-01-05] MEDS: diphenhydrAMINE 50 MG/ML VIAL IVP ONE ×2 (11:49→12:49)
--- NOTE | 2020-01-05 12:25 | NUR ---
PT. IS BACK FROM EGD PROCEDURE. V/S 98/48, HR 59, TEMP 97.8, RR 16, O2 STAT 94%. PT. IS ASLEEP AND IN BED. NO SIGNS OF DISTRESS NOTED. WILL CONTINUE TO MONITOR.
[2020-01-05] MEDS ORDERED: cloNIDine 0.1 MG TAB PO SCH (13:00)
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
[2020-01-05] MEDS: METOCLOPRAMIDE 10 MG/2 ML INJ VIAL IVP PRN ×2 (15:37→15:38)
--- NOTE | 2020-01-05 15:40 | NUR ---
SPOKE TO DR. COLLINS ABOUT PT'S PAIN AND CONTACT FOR NEXT OF KIN. DR. COLLINS IS AWARE AND PLACED NEW ORDERS FOR PAIN MEDICATION. DR. COLLINS WILL SEE PT. ABOUT CONDITION. WILL CONTINUE TO MONITOR
--- NOTE | 2020-01-05 15:45 | NUR ---
PT. IS IN EXTREME PAIN. DR. COLLINS IS AWARE AND IS BY THE BEDSIDE. PT. INSISTS ON SHOWERING. SECURITY IS BY THE BEDSIDE AND PT. IS BECOMING AGGRESSIVE. ESCORTED PT. TO SHOWER.
[2020-01-05] MEDS ORDERED: KETOROLAC 30 MG/ML VIAL ONE (15:54)
[2020-01-05 16:00] VITALS: BP 91/43
--- NOTE | 2020-01-05 18:00 | NUR ---
PT. EXPRESSES ANXIETY D/T PREVIOUS SITUATION. SPOKE TO DR. COLLINS, NEW ORDERS FOR ATIVAN 1MG PRN TO BE GIVEN. WILL FOLLOW THROUGH.
--- NOTE | 2020-01-05 18:05 | NUR ---
INFORMED DR. COLLINS ABOUT PT'S ALLERGY TO LORAZEPAM. DR. COLLINS ACKNOWLEDGES AND REQUESTS TO MONITOR FOR ALLERGIC REACTION. WILL FOLLOW THROUGH.
--- NOTE | 2020-01-05 18:15 | NUR ---
ATIVAN PRN GIVEN FOR ANXIETY. NO SIGNS OF DISTRESS NOTED. PT. IS IN BED AND EATING. WILL CONTINUE TO MONITOR.
[2020-01-05] MEDS ORDERED: LORazepam 1 MG TAB PO PRN (18:25)
[2020-01-05] MEDS: KETOROLAC 30 MG/ML VIAL IVP PRN (18:39)
--- NOTE | 2020-01-05 18:45 | NUR ---
RE-EVALUATED PT. PT. STATES NO DISCOMFORT OR PAIN, NO ALLERGIES NOTED. WILL CONTINUE TO MONITOR.
--- NOTE | 2020-01-05 19:23 | NUR ---
ENDORSED TO SUPERVISOR TYPE BAR AND SEGMENT NURSERONY, FOR CONTINUITY OF CARE.
--- NOTE | 2020-01-05 19:24 | NUR ---
RECEIVED REPORT FROM AM SHIFT KEVEN PADILLA FOR CONTINUITY OF CARE. PATIENT ASLEEP AND IN BED. PREVIOUS SHIFT SAID PT AAOX 4, AMBULATORY, ON ROOM AIR. RESPIRATIONS EVEN AND UNLABORED. SKIN NON-INTACT WITH 5 SURGICAL INCISION IN THE ABDOMEN. IV SITE PATENT AND INTACT ON L FOREARM 20G D5NS 75ML/HR WITH IVF. NO COMPLAINTS OF PAIN AT THIS TIME. NOT IN RESPIRATORY DISTRESS. REVIEWED PLAN OF CARE TO PATIENT. VERBALIZED UNDERSTANDING. SAFETY MEASURES IN PLACE. CALL LIGHT WITHIN REACH. WILL CONTINUE TO MONITOR PATIENT.
[2020-01-05] MEDS ORDERED: AMITRIPTYLINE 25 MG TAB PO SCH (21:00)
[2020-01-05] MEDS ORDERED: LACTULOSE 20 GM/30 ML UDC PO SCH (21:00)
--- NOTE | 2020-01-05 21:00 | NUR ---
CLONIDINE 0.1 MG HOLD FOR NOW PT'S BP IS 100/50 MMGH; HR 71; O2 SAT 98%; RR-18; PT SLEEPING AT THIS TIME Addendum: 01/05/20 at 2305 by Diane Rosales RN INFORMED DR. GAMA
--- NOTE | 2020-01-05 22:30 | NUR ---
PT WENT TO THE SHOWER HE SAID THAT HE IS A LOT OF PAIN ABDOMEN, AND HE SAID HE GOES TO THE SHOWER TO EASE HIS PAIN. CHECKED ON PATIENT MYSELF BUT THE ONLY THING I CAN SEE WAS THE HOT SHOWER ABOVE. CANNOT SEE BECAUSE OF THE SMOKEY GLASS INSIDE.BUT PT SEEMED TO BE BUSY. AFTER 20 MINS INSIDE THE SHOWER PT WENT BACK TO HIS ROOM.
--- NOTE | 2020-01-05 23:09 | NUR ---
PT SLEEPING, NO COMPLAINTS OF PAIN, IVF STILL RUNNING ON THE LEFT FA G 20, PATENT WILL CONTINUE TO MONITOR
--- NOTE | 2020-01-06 00:38 | NUR ---
C/O OF PAIN IN ABDOMEN WILL GIVE KETOROLAC, WILL ASSESS PAIN
[2020-01-06] MEDS: KETOROLAC 30 MG/ML VIAL IVP PRN (00:40)
--- NOTE | 2020-01-06 03:10 | NUR ---
PT WENT TO THE SHOWER HE SAID THAT HE IS A LOT OF PAIN ABDOMEN, AND HE SAID HE GOES TO THE SHOWER TO EASE HIS PAIN. CALLED SECURITY TO CHECK ON PT
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
--- NOTE | 2020-01-06 03:30 | NUR ---
SECURITY CAME IN AND CHECKED ON PATIENT INSIDE THE BATHROOM, PT REFUSED TO COOPERATE. MARISA THE REASON WHY SECUTITY WAS CALLED WAS BECAUSE THE PT KEEPS ON GOING BE THE BATHROOM AND STAYING FOR AT LEAST 20 MINS THERE. THE 1ST TIME HE WENT TO THE BATHRROM, CHECKED ON PT AND SAW THAT PT WAS TAKING A HOT SHOWER BUT THE SMOKEY GLASS COVERED MY VISION, SO THE 2ND TIME AROUND GOT THE SECURITY TO ASK HIM TO GO OUT BECAUSE IN HIS 2ND TIME AT THE SHOWER STAYED AGAIN THERE FOR 20 MINS. BUT PT REFUSED TO GO OUT, SO SECURITY HAD TO GO AND GET HIM OUT. PT AGGRESSIVE AND FIGHTING BACK ON SECURITY. PT WAS FORCED TO BE BROUGHT TO HIS ROOM BY 4 MEN,1 POLISHING WHEEL SETTER
[2020-01-06] MEDS ORDERED: LORazepam 2 MG/ML VIAL IM/IVP PRN (03:35)
--- NOTE | 2020-01-06 03:35 | NUR ---
PT WAS AGGRESSIVE, PT WAS CUSSING, HITTING STAFF, AND PT KICKING STAFF, PT NOT COOPERATING. IN THE ROOM HE WAS, FLIPPING THE CUSHION AND DISPLACING THE BED
[2020-01-06] MEDS ORDERED: LORazepam 2 MG/ML VIAL ONE (03:37)
--- NOTE | 2020-01-06 03:51 | NUR ---
PT HAVING SEIZURES; PT LOST CONSCIOUSNESS DR. CARVALHO ORDERED TO GIVE THE ATIVAN FOR SEIZURES Q 10 MINS PRN. ONLY GAVE ONE DOSE AT THIS TIME VIA IM, PT PULLED HIS IV EARLIER Addendum: 01/06/20 at 0420 by Diane Rosales RN DR. WOODSON
--- NOTE | 2020-01-06 03:53 | NUR ---
PT AWAKE NOW, AND 2 POLICE OFFICERS WERE HERE, WITH FINAL BLOCK PRESS OPERATOR, TIMOTHY, 1 RT, AND 2 ER STAFF. PT PLACED ON SOFT RESTRAINT.
--- NOTE | 2020-01-06 04:01 | NUR ---
TALKED TO PHARMACIST REGARDING LORAZEPAM, AND PRIOR TO GIVING LORAZEPAM IV I ASKED THE PT IF HE HAS ANY ALLERGIES OR REACTION TO LORAZEPAM IV, AND THE PT SAID NO. I AM MONITORING PT RIGHT NOW FOR ANY REACTIONS, BUT UNTIL NOW DON'T SEE ANY REACTION
--- NOTE | 2020-01-06 04:04 | NUR ---
TRIED TO HAVE PATIENT SAIGNED ZAIN BUT PT WAS AGGRESSIVE, 4 MEN STILL WITH PATIENT AND HE WAS WALKING IN THE HALLWAY, AND TO THE NURSES STATION TO GET HIS PHONE. Addendum: 01/06/20 at 0430 by Diane Rosales RN SIGNED
--- NOTE | 2020-01-06 04:05 | NUR ---
PT TRACY PITTMAN BROUGHT HIS THINGS AND GOT HIS CELLPHONE. Addendum: 01/06/20 at 0429 by Diane Rosales RN PLS DELETE THIS NOTE
--- NOTE | 2020-01-06 04:05 | NUR ---
PT WENT ELOPEMENT AND BROUGHT ALL HIS THINGS AND GOT HIS CELLPHONE
[2020-01-06] MEDS ORDERED: METR250T2 PO (11:02)
[2020-01-06] MEDS ORDERED: [UNRECOGNIZED DRUG - CODE] PO (11:02)
[2020-01-06] MEDS ORDERED: PANT40EC PO (11:02)
== END 2020-01-06 04:04 | disposition left against medical advice (07) | DRG 243 ==
LOC: MED 00:50 → MTU 03:27
PROVIDERS: ADMIT General Practice; ATTEND General Practice
PROC: 0DB68ZX Excision of Stomach, Via Natural or Artificial Opening Endoscopic, Diagnostic (ICD-10-PCS; 2020-01-05)
PROC: 0DB18ZX Excision of Upper Esophagus, Via Natural or Artificial Opening Endoscopic, Diagnostic (ICD-10-PCS; principal; 2020-01-05 11:30)
DX: K22.70 Barrett's esophagus without dysplasia (principal); E44.0 Moderate protein-calorie malnutrition; E83.42 Hypomagnesemia; K92.0 Hematemesis; E87.1 Hypo-osmolality and hyponatremia; N28.1 Cyst of kidney, acquired; D64.9 Anemia, unspecified; K80.50 Calculus of bile duct without cholangitis or cholecystitis without obstruction; I10 Essential (primary) hypertension; G40.909 Epilepsy, unspecified, not intractable, without status epilepticus; N20.0 Calculus of kidney; F12.99 Cannabis use, unspecified with unspecified cannabis-induced disorder; F15.99 Other stimulant use, unspecified with unspecified stimulant-induced disorder; B96.81 Helicobacter pylori [H. pylori] as the cause of diseases classified elsewhere; K44.9 Diaphragmatic hernia without obstruction or gangrene; Z68.20 Body mass index [BMI] 20.0-20.9, adult; Z90.49 Acquired absence of other specified parts of digestive tract; Z88.8 Allergy status to other drugs, medicaments and biological substances; Z59.0 Homelessness
CPT/HCPCS: 36415; 71045; 74160; 80053; 80305; 81003; 82150; 83036; 83605; 83690; 83735; 83880; 84100; 84443; 84484; 85025; 85610; 85730; 86677; 86886; 86900; 86901; 87040; 87081; 88305; 88313; 88342; 96361; 96374; 96375; 99285; C9113; J1170; J1200; J1885; J2060; J2250; J2405; J2765; J3010; J7030; J7042; Q0092; Q9967

== ENCOUNTER 2020-01-06 04:55 | Emergency (ER) | payer MEDICAID ==
[~2020-01-06] VITALS: Ht 170.2 cm; Wt 61.2 kg
[~2020-01-06 04:55] MED LIST: KEP500 PO
[2020-01-06 05:00] VITALS: BP 129/94
--- NOTE | 2020-01-06 05:01 | NUR ---
PT TAKEN TO TRIAGE ROOM
--- NOTE | 2020-01-06 05:02 | NUR ---
Dr. Tabares examining patient.
--- NOTE | 2020-01-06 05:14 | NUR ---
PT MOVED TO ER BED 11
[2020-01-06] MEDS ORDERED: LIDOCAINE VISCOUS 2% 20 ML UDC PO ONE (05:15)
[2020-01-06] MEDS ORDERED: ALUMINUM HYD/MAG/SIMETHICONE 30 ML UDC PO ONE (05:15)
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
[2020-01-06] MEDS ORDERED: FAMOTIDINE 20 MG TAB PO ONE (05:50)
[2020-01-06 06:00] LABS: BASOPHILS # (AUTO) 0.1 K/uL (0.00-0.22); EOSINOPHILS # (AUTO) 0.2 K/uL (0-0.4); EOSINOPHILS % (AUTO) 2.1 % (0.0-4.0); HEMATOCRIT 24.3 % (36-52); HEMOGLOBIN 8.2 g/dL (12.0-18.0); LYMPHOCYTES # (AUTO) 1.1 K/uL (2.0-11.5); MEAN CORPUSCULAR HEMOGLOBIN 30 pg (27-31); MEAN CORPUSCULAR HGB CONC 34 g/dL (33-37); MEAN CORPUSCULAR VOLUME 89.9 fL (80-94); MONOCYTES # (AUTO) 0.7 K/uL (0.8-1.0); MONOCYTES % (AUTO) 8.4 % (1.7-9.3); NEUTROPHILS # (AUTO) 6.6 K/uL (1.8-7.7); NEUTROPHILS % (AUTO) 75.5 % (42.2-75.2); PLATELET COUNT (AUTO) 521 K/uL (140-450); RED CELL DISTRIBUTION WIDTH 13.3 % (11.6-13.7); WHITE BLOOD COUNT (AUTO) 8.8 K/uL (4.8-10.8)
[2020-01-06 06:14] LABS: ALBUMIN 2.6 g/dL (3.4-5.0); ANION GAP 8.7 (8-16); CARBON DIOXIDE 29.5 mmol/L (21-32); POTASSIUM 4.2 mmol/L (3.5-5.1); TOTAL BILIRUBIN 0.2 mg/dL (0.0-1.0)
--- NOTE | 2020-01-06 06:30 | NUR ---
PT SIGNED CONSENT FOR CT SCAN W/CONTRAST.
--- NOTE | 2020-01-06 07:06 | NUR ---
Pt report given to KEVEN FLORIAN. Transfer of care at this time.
--- NOTE | 2020-01-06 07:12 | NUR ---
REPORT RECEIVED FROM KEVEN GUAMAN AND ASSUMED CARE.
--- NOTE | 2020-01-06 07:51 | NUR ---
pt sleeping in bed. arouseable to voice. awaiting residents for discharge.
[2020-01-06 10:20] VITALS: BP 127/87
--- NOTE | 2020-01-06 10:21 | NUR ---
Patient discharged with v/s stable. Written and verbal after care instructions given and explained. Patient verbalized understanding. Ambulatory with steady gait. All questions addressed prior to discharge. Advised to follow up with PMD. PT REFUSED TO SIGN DC PAPERS
[2020-01-06] MEDS ORDERED: [UNRECOGNIZED DRUG - CODE] PO (11:02)
[2020-01-06] MEDS ORDERED: PANT40EC PO (11:02)
[2020-01-06] MEDS ORDERED: METR250T2 PO (11:02)
== END 2020-01-06 10:21 | disposition home or self-care (01) ==
LOC: MED 04:55
DX: R10.9 Unspecified abdominal pain (principal); I10 Essential (primary) hypertension; R56.9 Unspecified convulsions; Z88.8 Allergy status to other drugs, medicaments and biological substances; Z88.0 Allergy status to penicillin; Z79.899 Other long term (current) drug therapy
CPT/HCPCS: 36415; 80053; 83690; 85025; 99283; 99284

== ENCOUNTER 2020-01-06 12:17 | Emergency (ER) | payer MEDICAID ==
[~2020-01-06] VITALS: Ht 172.7 cm; Wt 68.0 kg
[~2020-01-06 12:17] MED LIST changes: +METR250T2 PO; +PANT40EC PO; +[UNRECOGNIZED DRUG - CODE] PO
--- NOTE | 2020-01-06 12:17 | NUR ---
PT CAME IN THROUGH ED DOORS SCREAMING ABOUT 105-B AND LOOKING FOR HIS BLACK PANTS. SECURITY SATISH WAS FOLLOWING INSTRUCTING PATIENT HE HAD TO LEAVE. PT AGGRESSIVE TOWARDS STAFF AND SWINGING HIS ARMS. WE CALLED A CODE RUST, PT WAS THEN STOPPED IN HALLWAY AND STAFF MEMBERS WERE HOLDING PATIENT DOWN IN HALLWAY UNTIL [place] PD ARRIVED. UPON [place] [employer] ARRIVAL PATIENT WAS TAKEN INTO CUSTODY AND WAS TO BE TAKEN TO RESIDENTIAL FOR TRESPASSING. PATIENT WAS IN THE BACK OF PATROL UNIT WHERE PD OFFICER ELÍAS AND OFFICER GASTON REPORTED PATIENT WAS HAVING A SEIZURE. PATIENT WAS AWAKE WHEN I APPROACHED AND BEGAN TO SHOUT AT ME ABOUT HIS BLACK SWEATS IN ROOM 105-B THAT HE CLAIMS WERE THERE LAST NIGHT. I HAD SATISH FROM SECURITY CHECK AND ALSO SPOKE TO CHARGE FROM [facility] AND THEY STATED THERE WERE NO BELONGINGS. PT HAD BEEN RECENTLY DISCHARGED FROM OUR FACILITY EARLIER THIS AM AROUND 1020 AND WAS WITNESSED LEAVING FACILTIY WITH ALL HIS BELONGINGS.
--- NOTE | 2020-01-06 12:18 | NUR ---
[facility]ING PATRICK REFUSING TO TRANSPORT PATIENT TO [place] WITHOUT ANOTHER MSE ADDRESSING THE SEIZURES. SPOKE TO DR. QUINTERO AND PT WAS CHECKED BACK IN FOR MEDICAL CLEARANCE. PRE-BOOK FORM SIGNED AND FILLED OUT. PT HAD A CHEIF COMPLAINT OF ABD PAIN AND STATES "I FEEL LIKE MY STOMACH IS TORN." PT ALSO C/O N/V. DENIES FEVER. ABD SOFT, SUPLE. PT HAD CHOLECYSTECTOMY APPROXIMATELY 4 DAYS AGO HERE AT [facility]. DURING PATIENT IN ED HAS HAD NO WITNESSED SEIZURES.
--- NOTE | 2020-01-06 12:20 | NUR ---
Patient transferred to bed [facility] via wheelchair by tech. RN evaluating patient at bedside.
[2020-01-06 12:32] VITALS: BP 130/78
[2020-01-06] MEDS ORDERED: ONDANSETRON 4 MG ODT PO ONE (12:35)
--- NOTE | 2020-01-06 12:39 | NUR ---
Dr. Whatley is evaluating the patient at bedside.
--- NOTE | 2020-01-06 12:39 | NUR ---
ADMINISTERED ZOFRAN 4MG ODT TO ADDRESS NAUSEA. PT TOLERATED WELL.
--- NOTE | 2020-01-06 12:55 | NUR ---
NO VOMITING NOTED. PT STATES IMPROVEMENT OF NAUSEA S/P ZOFRAN.
[2020-01-06 13:05] VITALS: BP 128/82
--- NOTE | 2020-01-06 13:05 | NUR ---
PATIENT DISCHARGED, INSTRUCTIONS GIVEN TO OFFICER ELÍAS. PATIENT EXAMINED BY DR. QUINTERO. PATIENT MEDICALLY CLEARED AND RELEASED IN CUSTODY IN STABLE CONDITION. ORIGINAL PRE-BOOK FORM AND COPY WAS GIVEN TO OFFICER ELÍAS. PT LEFT FACILITY IN HANDCUFFS WITH STEAD GAIT. VSS UPON DISCHARGE.
== END 2020-01-06 13:05 ==
LOC: MED 12:17
DX: R10.9 Unspecified abdominal pain (principal); I10 Essential (primary) hypertension; R56.9 Unspecified convulsions; Z88.0 Allergy status to penicillin; Z88.8 Allergy status to other drugs, medicaments and biological substances; Z02.79 Encounter for issue of other medical certificate; Z90.49 Acquired absence of other specified parts of digestive tract; Z79.899 Other long term (current) drug therapy
CPT/HCPCS: 99283; Q0162

== ENCOUNTER 2020-01-23 02:02 | Emergency (ER) | payer MEDICAID ==
[~2020-01-23] VITALS: Ht 175.3 cm; Wt 62.1 kg
[2020-01-23 02:04] VITALS: BP 178/123
--- NOTE | 2020-01-23 02:04 | NUR ---
BIBA TAKEN TO BED #7
[2020-01-23] MEDS ORDERED: NACL 0.9% 1,000 ML IV SCH (02:16)
[2020-01-23] MEDS ORDERED: ONDANSETRON 4 MG/2 ML VIAL IVP ONE (02:20)
[2020-01-23] MEDS ORDERED: MORPHINE SULFATE 4 MG/ML SYR IVP ONE ×2 (02:20→03:05)
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
[2020-01-23 03:00] LABS: ANION GAP 13.7 (8-16); CARBON DIOXIDE 32.7 mmol/L (21-32); CREATININE 1.1 mg/dL (0.6-1.3); POTASSIUM 3.4 mmol/L (3.5-5.1)
[2020-01-23 03:05] LABS: BASOPHILS # (AUTO) 0.1 K/uL (0.00-0.22); BASOPHILS % (AUTO) 1.4 % (0.0-2.0); EOSINOPHILS % (AUTO) 0.3 % (0.0-4.0); HEMATOCRIT 29.9 % (36-52); HEMOGLOBIN 9.8 g/dL (12.0-18.0); LYMPHOCYTES # (AUTO) 0.7 K/uL (2.0-11.5); MEAN CORPUSCULAR HEMOGLOBIN 28 pg (27-31); MEAN CORPUSCULAR HGB CONC 33 g/dL (33-37); MEAN CORPUSCULAR VOLUME 85.3 fL (80-94); MONOCYTES # (AUTO) 0.5 K/uL (0.8-1.0); MONOCYTES % (AUTO) 4.9 % (1.7-9.3); NEUTROPHILS # (AUTO) 7.9 K/uL (1.8-7.7); NEUTROPHILS % (AUTO) 85.4 % (42.2-75.2); RED BLOOD CELL COUNT(AUTO) 3.51 MIL/uL (4.20-6.10); RED CELL DISTRIBUTION WIDTH 13.8 % (11.6-13.7); WHITE BLOOD COUNT (AUTO) 9.2 K/uL (4.8-10.8)
[2020-01-23 03:09] LABS: TOTAL BILIRUBIN 0.3 mg/dL (0.0-1.0)
--- NOTE | 2020-01-23 03:09 | NUR ---
PT REFUSED TO GIVE URINE SAMPLE AT THIS TIME STATING "WHEN THE PAIN GOES DOWN THEN I CAN TRY".
[2020-01-23 03:11] LABS: PLATELET COUNT (AUTO) 789 K/uL (140-450)
--- NOTE | 2020-01-23 03:25 | NUR ---
WALKED URINE SAMPLE TO LAB
[2020-01-23 03:28] LABS: APPEARANCE,URINE SL CLOUDY (CLEAR); BILIRUBIN,URINE NEGATIVE (NEGATIVE); BLOOD, URINE NEGATIVE (NEGATIVE); COLOR,URINE YELLOW (YELLOW); LEUKOCYTE ESTERASE ,URINE NEGATIVE (NEGATIVE); NITRITE, URINE NEGATIVE (NEGATIVE); PH,URINE 8.5 (5.0-9.0); UGLUCOSE NEGATIVE (NEGATIVE)
[2020-01-23] MEDS ORDERED: ALUMINUM HYD/MAG/SIMETHICONE 30 ML UDC PO ONE (03:30)
[2020-01-23] MEDS ORDERED: LIDOCAINE VISCOUS 2% 20 ML UDC PO ONE (03:30)
--- NOTE | 2020-01-23 03:30 | NUR ---
PT IN BED IN POSITION OF COMFORT, BED LOW AND LOCKED, 2 SDIERAILS UP, VSS, WILL CONTINUE TO MONITOR.
[2020-01-23 03:44] LABS: RBC,URINE 0-5 /HPF (0-5); WBC,URINE NONE SEEN /HPF (0-5)
--- NOTE | 2020-01-23 03:52 | NUR ---
PT TAKEN TO CT VIA PEDRO
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
--- NOTE | 2020-01-23 05:05 | NUR ---
PT ASLEEP IN BED IN POSITION OF COMFORT, BED LOW AND LOCKED, 2 SDIERAILS UP, VSS, WILL CONTINUE TO MONITOR.
[2020-01-23 06:30] VITALS: BP 155/91
--- NOTE | 2020-01-23 06:30 | NUR ---
Patient discharged with v/s stable. Written and verbal after care instructions given and explained. Patient alert, oriented and verbalized understanding of instructions. Ambulatory with steady gait. All questions addressed prior to discharge. ID band removed. Patient advised to follow up with PMD. Rx of PEPCID/MYLANTA given. Patient educated on indication of medication including possible reaction and side effects. Opportunity to ask questions provided and answered. PT PROVIDED WITH HOMELESS PACKET, FOOD, BUS PASS, PT WEARING APPROPRIATE WEATHER CLOTHING.
== END 2020-01-23 06:30 | disposition home or self-care (01) ==
LOC: MED 02:02
DX: R10.13 Epigastric pain (principal); R11.2 Nausea with vomiting, unspecified; I10 Essential (primary) hypertension; Z88.0 Allergy status to penicillin; Z98.890 Other specified postprocedural states; Z88.8 Allergy status to other drugs, medicaments and biological substances
CPT/HCPCS: 36415; 74177; 80053; 81001; 83690; 85025; 87086; 96361; 96374; 96375; 96376; 99285; J2270; J2405; J7030; Q9967

== ENCOUNTER 2020-11-15 11:37 | Emergency (ER) | payer MEDICAID ==
[~2020-11-15] VITALS: Ht 175.3 cm; Wt 63.5 kg
[2020-11-15 11:37] VITALS: BP 106/67
[~2020-11-15 11:37] MED LIST changes: +METR-520 PO; -METR250T2 PO
--- NOTE | 2020-11-15 11:37 | NUR ---
CAMDEN MCKEON AND PLACED IN BED 2 BY EMS.
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
[2020-11-15] MEDS ORDERED: KETOROLAC 60 MG/2 ML VIAL IM ONE (12:00)
--- NOTE | 2020-11-15 12:07 | NUR ---
FISHING LINE WINDING MACHINE OPERATOR AT PT BEDSIDE.
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
[2020-11-15] MEDS ORDERED: ACET-9882 PO (14:59)
[2020-11-15] MEDS ORDERED: AZIT250T3 PO ×2 (15:06→15:07)
[2020-11-15 15:07] VITALS: BP 126/87
--- NOTE | 2020-11-15 15:19 | NUR ---
Patient given written and verbal discharge instructions and verbalizes understanding. Rx given for Zithromax and Acetaminophen to take to any pharmacy. Patient provided with a bus pass and meal to take. Patient is awake, alert and oriented. Ambulatory with steady gait. Given list of available shelters in surrounding areas. Homeless waiver form signed by patient. All other needs addressed. Pt left facility in stable condition.
== END 2020-11-15 15:19 | disposition home or self-care (01) ==
LOC: MED 11:37
DX: S30.0XXA Contusion of lower back and pelvis, initial encounter (principal); S00.83XA Contusion of other part of head, initial encounter; Z88.0 Allergy status to penicillin; Z88.8 Allergy status to other drugs, medicaments and biological substances; I10 Essential (primary) hypertension; Z79.899 Other long term (current) drug therapy; Z85.01 Personal history of malignant neoplasm of esophagus; Z86.73 Personal history of transient ischemic attack (TIA), and cerebral infarction without residual deficits; Y04.2XXA Assault by strike against or bumped into by another person, initial encounter; Y93.89 Activity, other specified; Y92.89 Other specified places as the place of occurrence of the external cause; Y99.8 Other external cause status
CPT/HCPCS: 70150; 71045; 72080; 96372; 99284; J1885